=== PATIENT | female | born 1955 | race Caucasian/White ===

== ENCOUNTER → 2024-05-14 | Outpatient (CLI) | payer OTHER ==
--- NOTE | 2024-05-14 15:06 | HMCIMG ---
MR SPINAL CANAL, LUMBAR WO CON HISTORY: Low back pain COMPARISON: None TECHNIQUE: MRI of the lumbar spine was performed utilizing multiple pulse sequences in axial , coronal and sagittal plane. Patient was not given contrast through intravenous route. FINDINGS: Endplate degenerative changes with disc space narrowing are seen predominantly at T12-L1 and L2-L3 levels. No abnormal signal intensity is seen of the visualized bony structure. No loss of vertebral height is seen. There is straightening of normal lumbar curvature which may be related to muscle spasm or positioning. Degenerative disc signals are present at all lumbar spine levels. Visualized distal conus is unremarkable. There is left renal cyst measuring 10 mm. At the L2-L3 level, there is mild annular disc bulge with bilateral configuration hypertrophy causing anterior thecal sac compression with bilateral lateral recess stenosis and bilateral neural foraminal stenosis. The thecal sac measures approximately 6.8 mm in its anterior posterior dimension. At the L3-4 level, there is spondylotic disc and disc protrusion with bilateral ligamentum flavum hypertrophy causing anterior thecal sac compression with bilateral lateral recess stenosis and bilateral neural foraminal stenosis. The thecal sac measures approximately 6.74 mm in its anterior posterior dimension. At the L4-L5 level, there is spondylotic disc with disc protrusion/bilateral ligamentum flavum hypertrophy and bilateral facet hypertrophy causing anterior thecal sac compression with bilateral lateral recess stenosis and bilateral neural foraminal stenosis. The thecal sac measures approximately 4.3 mm in its anterior posterior dimension. At the L5-S1 level, there is spondylotic disc with bilateral facet hypertrophy causing anterior thecal sac compression with bilateral lateral recess stenosis and minimal bilateral neural foraminal stenosis. The thecal sac measures approximately 10 mm in its anterior posterior dimension. IMPRESSION: 1. DJD with lumbar spine spondylosis as described above with central canal narrowing. This is worse at L4-5 level with mild grade 1 anterolisthesis.
== END | disposition home or self-care (01) ==
LOC: RAH 13:05
PROVIDERS: ATTEND Internal Medicine
DX: M48.07 Spinal stenosis, lumbosacral region (principal); M47.817 Spondylosis without myelopathy or radiculopathy, lumbosacral region; M51.361 Other intervertebral disc degeneration, lumbar region with lower extremity pain only; M54.40 Lumbago with sciatica, unspecified side
CPT/HCPCS: 72148

== ENCOUNTER → 2024-05-19 | Outpatient (CLI) | payer OTHER ==
--- NOTE | 2024-05-19 15:24 | HMCSR ---
APPROVED REPORT Duplex Results A/PTransverseLongitudinalVelocityWaveform Proximal Aorta 1.99cm2.15cm2.14gy518.20 cm/secNormal Mid Aorta 1.72cm2.02cm1.86cm85.30 cm/secNormal Distal Aorta 1.54cm1.83cm1.85cm91.30 cm/secNormal Rt. Common Iliac Artery1.33cm1.40cm1.36cn385.40 cm/secNormal Lt. Common Iliac Artery 1.23cm1.33cm1.70jy528.70 cm/secNormal Techologist Impression The abdominal aorta and the bilateral common iliac arteries are patent and normal in size without bella dence of aneurysm. Conclusion As above. Conclusion As above.
== END | disposition home or self-care (01) ==
LOC: SHCH 08:10
PROVIDERS: ATTEND Internal Medicine Cardiovascular Disease
DX: I70.0 Atherosclerosis of aorta (principal)
CPT/HCPCS: 93978

== ENCOUNTER → 2024-06-08 | Outpatient (CLI) | payer OTHER ==
--- NOTE | 2024-06-08 14:37 | HMCIMG ---
CT HEART SAVER PROMOTIONAL HISTORY: Calcium scoring COMPARISON: None TECHNIQUE: Computed tomography of the heart was performed with ECG gating and suspended respiration. Postprocessing was performed on a computer workstation to obtain diastolic phase images, determine calcium score and provide a quantitative assessment of extent of disease. This CT included only the heart. HeartSaver score is 155.2. Please see cardiac calcium score report. The available CT chest images show no acute finding. CT was performed with one or more following dose reduction techniques: automated exposure control, adjustment of the mA and kv according to patient's size, or use of a iterative reconstruction technique.
== END | disposition home or self-care (01) ==
LOC: RAH 12:53
PROVIDERS: ATTEND Internal Medicine Cardiovascular Disease
DX: Z13.6 Encounter for screening for cardiovascular disorders (principal)
CPT/HCPCS: 75571

== ENCOUNTER → 2024-08-11 | Outpatient (CLI) | payer OTHER ==
--- NOTE | 2024-08-11 16:20 | HMCIMG ---
CT NECK SOFT TISS W/O CONTRAST REASON: Localized swelling, mass and lump, neck COMPARISON: None TECHNIQUE: Axial images are obtained from above the skull base through the thoracic inlet without IV contrast. Sagittal and coronal reconstruction images were then performed. FINDINGS: Skull base structures appear unremarkable. This includes normal appearance of the parotid glands. Tongue, tonsillar fossa and parapharyngeal soft tissues are unremarkable. Both submandibular glands are well visualized and appear normal. The glands are somewhat asymmetric, the left gland extends inferiorly further than the right, the axial dimensions of the glands are similar. There is no evidence of focal mass. There is no lymphadenopathy in the submandibular region or elsewhere. Larynx, trachea and lung apices appear unremarkable. There is a poorly defined 12 mm nodule right lobe of the thyroid with decreased enhancement, ultrasound is recommended for further evaluation of this finding. There is no superior mediastinal lymphadenopathy or lower cervical lymphadenopathy. Simultaneous soft tissues appear unremarkable. There are no focal osseous lesions. IMPRESSION: 1. 12 mm nodule right lobe of the thyroid, thyroid ultrasound recommended for further evaluation. 2. Otherwise unremarkable exam with particular attention to the left submandibular region.
== END | disposition home or self-care (01) ==
LOC: RAH 14:42
PROVIDERS: ATTEND Internal Medicine
DX: E04.1 Nontoxic single thyroid nodule (principal); R22.1 Localized swelling, mass and lump, neck
CPT/HCPCS: 70490

== ENCOUNTER → 2024-09-02 | Outpatient (CLI) | payer OTHER ==
--- NOTE | 2024-09-07 08:43 | HMCSR ---
APPROVED REPORT EXAM: Two-dimensional and M-mode echocardiogram with Doppler and color Doppler. INDICATION ICD: shortness of breath 2D Dimensions RVDd3.4 cmLVEF(%)57.5 (>50%)LVED Vol(simp.)104.0 mL IVSd1.0 (0.7-1.1cm)FS(%)30 %LVES Vol(simp.)43.0 mL LVDd4.5 (3.8-5.6cm)LA (2D)3.7 (1.6-4.0cm)LVEF(%, simp.)58 % PWd0.9 (0.7-1.1cm)Ao Root(2D)3.1 (2.0-3.7cm)LA ESV INDEX (BP)28.14 mL/m2 LVDs3.2 (2.5-4.0cm)LVOT diam2.0 (1.8-2.4cm) IVC diam1.3 cm Aortic Valve AoV Vmax1.3 m/[place] GR6.6 mmHgLVOT Vmax1.3 m/s AoV VTI0.3 mAo Mean GR3.3 mmHgLVOT VTI0.30 m SRINIVAS (VMAX)3.0 cm2AVA (VTI) 3.0 cm2 Mitral Valve MV E Vmax73.4 cm/sDECEL Xkax795 ms MV A Vmax96.9 cm/s E/A ratio0.8 MR Max PG38 mmHg TDI E/E' Zgjebc44.6E/E' Lateral8.8 Pulmonary Valve PV Vmax0.9 m/sPV VTI0.20 mPV Mean GR2 mmHg PV Peak GR3.3 mmHgPI End Carolyn. Otilio 0.6 cm/s Tricuspid Valve TR Vmax2.5 m/sRAP (EST) 3 ohIjMTCO53.3 mmHg TR Peak GR24.3 mmHg Left Ventricle Left ventricular cavity size is normal. There is normal LV segmental wall motion. There is normal lef t ventricular wall thickness. LVEF is 55-60%. Stage I diastolic dysfunction. Right Ventricle The right ventricle is normal size. The right ventricular systolic function is normal. Atria The left atrium size is normal. The right atrium size is normal. Aortic Valve Aortic valve is trileaflet. Aortic valve has calcified nodular thickening. Trace aortic regurgitation . There is no aortic valvular stenosis. Mitral Valve Mitral valve leaflets are sclerotic but open well. Mitral regurgitation is trace. There is no mitral valve stenosis. Tricuspid Valve The tricuspid valve leaflets appear normal. There is trace tricuspid regurgitation. Pulmonic Valve The pulmonic valve leaflets appears normal. There is trace pulmonic valvular regurgitation. Great Vessels The aortic root is normal in size. IVC is normal in size and collapses >50% with inspiration. Pericardium No pericardial effusion. Conclusion LVEF is 55-60%. Stage I diastolic dysfunction. Aortic valve is trileaflet. Aortic valve has calcified nodular thickening. There is no aortic valvular stenosis.
== END | disposition home or self-care (01) ==
LOC: SHCH 08:07
PROVIDERS: ATTEND Internal Medicine Cardiovascular Disease
DX: R06.02 Shortness of breath (principal)
CPT/HCPCS: 93306